=== PATIENT | male | born 1985 | race Asian ===

== ENCOUNTER → 2017-01-14 | Outpatient (CLI) | payer OTHER ==
[2016-07-20 12:30] VITALS: BP 132/72
[~2017-01-14] MED LIST: ASPI-630 PO; CLON0.5T PO; DRON10CA PO; EFAV1TAB PO; LEXAPRO20 MG PO; METH-37 PO; NAPR500T3 PO; RANI150T6 PO; TRAM50TA PO
[2017-01-14 10:35] LABS: BASO # 0.1 x10^3/uL (0.0-0.2); BASO % 1 % (0-3); EOS # 0.1 x10^3/uL (0.0-0.7); EOS % 2 % (0-3); HEMOGLOBIN 13.7 g/dL (13.0-17.5); LYMPH # 2.1 x10^3/uL (1.0-4.8); LYMPH % 37 % (24-48); MEAN CORPUSCULAR HEMOGLOBIN 35 pg (25-35); MEAN CORPUSCULAR HGB CONC 34 g/dL (31-37); MEAN CORPUSCULAR VOLUME 104 fL (79-100); MONO # 0.3 x10^3/uL (0.0-1.1); MONO % 6 % (0-9); NEUT % 53 % (31-73); PLATELET COUNT 222 x10^3/uL (140-400); RED BLOOD COUNT 3.86 x10^6/uL (4.30-5.70); RED CELL DISTRIBUTION WIDTH 13.4 % (11.5-14.5); WHITE BLOOD COUNT 5.6 x10^3/uL (4.0-11.0)
[2017-01-14 11:13] LABS: ALBUMIN 3.8 g/dL (3.4-5.0); ALBUMIN/GLOBULIN RATIO 1.1 (1.0-1.7); CREATININE 1.1 mg/dL (0.7-1.3); GFR 77.6; POTASSIUM 3.6 mmol/L (3.5-5.1); TOTAL BILIRUBIN 0.3 mg/dL (0.2-1.0); TOTAL PROTEIN 7.3 g/dL (6.4-8.2)
== END | disposition home or self-care (01) ==
LOC: LAB 09:35
PROVIDERS: ATTEND Internal Medicine Infectious Disease
DX: B20 Human immunodeficiency virus [HIV] disease (principal)
CPT/HCPCS: 80053; 85025

== ENCOUNTER → 2017-06-12 | Outpatient (CLI) | payer OTHER ==
[2016-07-20 12:30] VITALS: BP 132/72
[~2017-06-12] MED LIST changes: -NAPR500T3 PO; +NAPR500T4 PO
[2017-06-12 12:41] LABS: BASO % 0 % (0-3); EOS # 0.2 x10^3/uL (0.0-0.7); EOS % 3 % (0-3); HEMATOCRIT 41.2 % (39.0-53.0); HEMOGLOBIN 14.5 g/dL (13.0-17.5); LYMPH # 1.5 x10^3/uL (1.0-4.8); LYMPH % 24 % (24-48); MEAN CORPUSCULAR HEMOGLOBIN 38 pg (25-35); MEAN CORPUSCULAR HGB CONC 35 g/dL (31-37); MEAN CORPUSCULAR VOLUME 109 fL (79-100); MONO # 0.3 x10^3/uL (0.0-1.1); MONO % 5 % (0-9); NEUT # 4.1 x10^3uL (1.8-7.7); NEUT % 68 % (31-73); PLATELET COUNT 221 x10^3/uL (140-400); RED BLOOD COUNT 3.79 x10^6/uL (4.30-5.70); RED CELL DISTRIBUTION WIDTH 13.7 % (11.5-14.5); WHITE BLOOD COUNT 6.1 x10^3/uL (4.0-11.0)
[2017-06-12 12:49] LABS: ALBUMIN 4.2 g/dL (3.4-5.0); ALBUMIN/GLOBULIN RATIO 1.1 (1.0-1.7); CALCIUM 9.5 mg/dL (8.5-10.1); CREATININE 1.1 mg/dL (0.7-1.3); GFR 77.1; POTASSIUM 3.6 mmol/L (3.5-5.1); TOTAL PROTEIN 7.9 g/dL (6.4-8.2)
== END | disposition home or self-care (01) ==
LOC: LAB 11:30
PROVIDERS: ATTEND Internal Medicine Infectious Disease
DX: B20 Human immunodeficiency virus [HIV] disease (principal)
CPT/HCPCS: 36415; 80053; 85025; 86593; 87536

== ENCOUNTER 2017-06-29 22:01 | Emergency (ER) | payer OTHER ==
[~2017-06-29] VITALS: Ht 175.3 cm; Wt 93.9 kg
[~2017-06-29 22:01] MED LIST changes: +NAPR-514 PO; -NAPR500T4 PO
--- NOTE | 2017-06-29 22:04 | ED.ADGEN ---
Past History Past Medical History: HIV, Other Past Surgical History: Other Smoking: Non-smoker Alcohol Use: None Drug Use: None Adult General Chief Complaint Chief Complaint " ... I think I got the flu .." " My mom has flu B.." HPI HPI Patient is a 32 year old male who presents with above hx and complaints fever, chills, pharyngitis, rhinorrhea, myalgia, arthralgia , generalized chest discomfort and malaise. Patient denies any travel. Mother recently diagnosed with influenza B. Patient has known HIV and has been under some suppressive HIV therapy. Patient follows with infectious disease Dr. Ndiaye. Patient's primary of Dr. Bacon. Review of Systems Review of Systems Constitutional: Subjective history of fever or chills [] Eyes: Denies change in visual acuity, redness, or eye pain [] HENT: History of nasal congestion and moderate sore throat [] Respiratory: History of a nonproductive cough Cardiovascular: No additional information not addressed in HPI [] GI: Denies abdominal pain, nausea, vomiting, bloody stools or diarrhea [] : Denies dysuria or hematuria [] Musculoskeletal: Denies back pain or joint pain [] Integument: Denies rash or skin lesions [] Neurologic: Complaints of headache. Denies, focal weakness or sensory changes [ ] Endocrine: Denies polyuria or polydipsia [] All other systems were reviewed and found to be within normal limits, except as documented in this note. Family History Family History Mother has influenza B Current Medications Current Medications Current Medications Medications (Trade) Dose Ordered Sig/Jose Start Time Stop Time Status Last Admin Dose Admin Info (Do NOT chart on this entry -- for MONITORING) 1 each PRN DAILY PRN 06/30/17 00:30 06/30/17 04:25 DC Iohexol (Omnipaque 300 Mg/ml) 75 ml 1X ONCE 06/30/17 01:45 06/30/17 01:46 DC 06/30/17 01:56 75 ML Lactated Ringer's 1,000 ml @ 1,000 mls/hr 1X ONCE 06/30/17 03:00 06/30/17 03:59 DC 06/30/17 03:00 1,000 MLS/HR Magnesium Hydroxide (Milk Of Magnesia) 2,400 mg 1X ONCE 06/30/17 01:45 06/30/17 01:46 DC 06/30/17 01:45 2,400 MG Oseltamivir Phosphate (Tamiflu) 75 mg 1X ONCE 06/30/17 00:45 06/30/17 00:46 DC 06/30/17 00:51 75 MG Oxycodone/ Acetaminophen (Percocet 10/325) 1 tab 1X ONCE 06/29/17 23:45 06/30/17 00:18 DC 06/30/17 00:51 1 TAB Sodium Chloride 1,000 ml @ 1,000 mls/hr Q1H 06/29/17 23:45 06/30/17 00:44 DC 06/30/17 00:52 1,000 MLS/HR Allergies Allergies Allergies Coded Allergies Type Severity Reaction Last Updated Verified ceftriaxone Allergy Intermediate 09/04/13 Yes Physical Exam Physical Exam Constitutional: Moderately acute distress, non-toxic appearance. [] HENT: Normocephalic, atraumatic, bilateral external ears normal, oropharynx moist, injected pharynx, no oral exudates, nose rhinorrhea Eyes: PERRLA, EOMI, conjunctiva normal, no discharge. [] Neck: Normal range of motion, no tenderness, supple, no stridor. [] Cardiovascular: Tachycardia Heart rate regular rhythm, no murmur [] Lungs & Thorax: Bilateral breath sounds equal few scattered wheezes on auscultation [] Abdomen: Bowel sounds normal, soft, no tenderness, no masses, no pulsatile masses. [] Skin: Warm, dry, no erythema, no rash. [] Back: No tenderness, no CVA tenderness. [] Extremities: No tenderness, no cyanosis, no clubbing, ROM intact, no edema. [] Neurologic: Alert and oriented X 3, normal motor function, normal sensory function, no focal deficits noted. Design Inserter equal. DTRs +2 patella and brachial. Psychologic: Affect anxious, judgement normal, mood depressed Current Patient Data Vital Signs Vital Signs Date Time Temp Pulse Resp B/P (MAP) Pulse Ox O2 Delivery O2 Flow Rate FiO2 06/30/17 03:45 98.5 70 20 123/79 (94) 99 Room Air Lab Results Laboratory Tests Test 06/29/17 22:05 06/29/17 23:59 06/30/17 00:00 06/30/17 00:40 Influenza Type A (Rapid) Negative (NEGATIVE) Influenza Type B (Rapid) Positive (NEGATIVE) Group A Streptococcus Rapid Negative (NEGATIVE) White Blood Count 8.0 x10^3/uL (4.0-11.0) Red Blood Count 3.57 x10^6/uL (4.30-5.70) L Hemoglobin 13.7 g/dL (13.0-17.5) Hematocrit 39.0 % (39.0-53.0) Mean Corpuscular Volume 109 fL (79-100) H Mean Corpuscular Hemoglobin 38 pg (25-35) H Mean Corpuscular Hemoglobin Concent 35 g/dL (31-37) Red Cell Distribution Width 12.1 % (11.5-14.5) Platelet Count 207 x10^3/uL (140-400) Neutrophils (%) (Auto) 75 % (31-73) H Lymphocytes (%) (Auto) 20 % (24-48) L Monocytes (%) (Auto) 5 % (0-9) Eosinophils (%) (Auto) 0 % (0-3) Basophils (%) (Auto) 1 % (0-3) Neutrophils # (Auto) 6.0 x10^3uL (1.8-7.7) Lymphocytes # (Auto) 1.6 x10^3/uL (1.0-4.8) Monocytes # (Auto) 0.4 x10^3/uL (0.0-1.1) Eosinophils # (Auto) 0.0 x10^3/uL (0.0-0.7) Basophils # (Auto) 0.0 x10^3/uL (0.0-0.2) Erythrocyte Sedimentation Rate 7 (0-15) Prothrombin Time 10.5 SEC (9.4-11.4) Prothrombin Time INR 1.0 (0.9-1.1) PTT 24 SEC (23-33) D-Dimer (Lona) 0.19 mg/L (0.00-0.50) Sodium Level 136 mmol/L (136-145) Potassium Level 3.8 mmol/L (3.5-5.1) Chloride Level 101 mmol/L (98-107) Carbon Dioxide Level 27 mmol/L (21-32) Anion Gap 8 (6-14) Blood Urea Nitrogen 12 mg/dL (8-26) Creatinine 1.1 mg/dL (0.7-1.3) Estimated GFR (Cockcroft-Gault) 77.1 Glucose Level 120 mg/dL (70-99) H Calcium Level 8.8 mg/dL (8.5-10.1) Magnesium Level 1.7 mg/dL (1.8-2.4) L Total Bilirubin 0.3 mg/dL (0.2-1.0) Direct Bilirubin 0.1 mg/dL (0.0-0.2) Aspartate Amino Transferase (AST) 27 U/L (15-37) Alanine Aminotransferase (ALT) 37 U/L (16-63) Alkaline Phosphatase 67 U/L (46-116) Creatine Kinase 225 U/L (39-308) Creatine Kinase MB (Mass) 1.4 ng/mL (0.0-3.6) Creatine Kinase MB Relative Index 0.6 % (0-4) Troponin I Quantitative < 0.017 ng/mL (0-0.055) C-Reactive Protein 2.8 mg/L (0-3.3) JL-Npm-L-Type Natriuretic Peptide 56 pg/mL (0-124) Total Protein 7.5 g/dL (6.4-8.2) Albumin 4.1 g/dL (3.4-5.0) Amylase Level 54 U/L (25-115) Lipase 125 U/L (73-393) Urine Opiates Screen Pos (NEG) Urine Methadone Screen Neg (NEG) Urine Barbiturates Neg (NEG) Urine Phencyclidine Screen Neg (NEG) Urine Amphetamine/Methamphetamine Neg (NEG) Urine Benzodiazepines Screen Neg (NEG) Urine Cocaine Screen Neg (NEG) Urine Cannabinoids Screen Pos (NEG) Urine Ethyl Alcohol Neg (NEG) Urine Collection Type Void Urine Color Yellow Urine Clarity Clear Urine pH 6.0 Urine Specific [place] 1.020 Urine Protein Neg (NEG-TRACE) Urine Glucose (UA) Neg mg/dL (NEG) Urine Ketones (Stick) Neg mg/dL (NEG) Urine Blood Neg (NEG) Urine Nitrite Neg (NEG) Urine Bilirubin Neg (NEG) Urine Urobilinogen Dipstick 0.2 mg/dL (0.2 mg/dL) Urine Leukocyte Esterase Neg (NEG) Urine RBC 0 /HPF (0-2) Urine WBC 0 /HPF (0-4) Urine Squamous Epithelial Cells None /LPF Urine Bacteria 0 /HPF (0-FEW) EKG EKG My interpretation of EKG shows a sinus rhythm at 67. No findings of acute morphology[] Radiology/Procedures Radiology/Procedures I interpretation chest x-ray shows no large infiltrate or consolidation. Does have some linear atelectasis. My interpretation CT of head shows no shift, mass , edema, bleed, or fracture.[] Course & Med Decision Making Course & Med Decision Making Pertinent Labs and Imaging studies reviewed. (See chart for details) Patient reports marked improvement of symptoms at time of discharge. Patient declines spinal tap at this time. Patient exhibits UCAR capacity. Discussed presentation, testing and treatment plan with Dr. Ndiaye she recommended continue Tamiflu 75 mg twice a day. No change in his HIV regimen and to follow-up in clinic. Patient to push fruit juices and fluids. Patient take [id number] Tylenol and ibuprofen as needed for discomfort. Patient continue his HIV meds as previous directed. Patient take Tamiflu 75 mg twice day for 5 days. Patient follow-up with Dr. Bacon as well as Dr. Ndiaye. [] Final Impression Final Impression 1. Influenza B 2. Dehydration 3. History of HIV[] 4. Macrocytic hyperchromic indices 5. Hypo-magnesium Problems: Dragon Disclaimer Dragon Disclaimer This electronic medical record was generated, in whole or in part, using a voice recognition dictation system. SHAHAB MONTE MD Jun 29, 2017 22:04
[2017-06-29 23:36] LABS: INFLUENZA A PATIENT NEGATIVE (NEGATIVE); INFLUENZA B PATIENT POSITIVE (NEGATIVE)
[2017-06-29] MEDS ORDERED: IV NORMAL SALINE 1,000ML 1,000 ML IV SCH (23:45)
[2017-06-29] MEDS ORDERED: oxyCODONE/APAP 10/325 1 TAB TABLET PO ONE (23:45)
[2017-06-30] MEDS ORDERED: IOHEXOL 300 MG/ML 75 ML VIAL. IV ONE ×2 (00:15→01:45)
[2017-06-30 00:26] LABS: BASO % 1 % (0-3); EOS % 0 % (0-3); HEMOGLOBIN 13.7 g/dL (13.0-17.5); LYMPH # 1.6 x10^3/uL (1.0-4.8); LYMPH % 20 % (24-48); MEAN CORPUSCULAR HEMOGLOBIN 38 pg (25-35); MEAN CORPUSCULAR HGB CONC 35 g/dL (31-37); MEAN CORPUSCULAR VOLUME 109 fL (79-100); MONO # 0.4 x10^3/uL (0.0-1.1); MONO % 5 % (0-9); NEUT % 75 % (31-73); PLATELET COUNT 207 x10^3/uL (140-400); RED BLOOD COUNT 3.57 x10^6/uL (4.30-5.70); RED CELL DISTRIBUTION WIDTH 12.1 % (11.5-14.5)
[2017-06-30] MEDS ORDERED: CONTRAST GIVEN MC PRN (00:30)
[2017-06-30] MEDS ORDERED: OSELTAMIVIR 75 MG CAPSULE PO ONE (00:45)
[2017-06-30 01:01] LABS: ALBUMIN 4.1 g/dL (3.4-5.0); C REACTIVE PROTEIN 2.8 mg/L (0-3.3); CALCIUM 8.8 mg/dL (8.5-10.1); CREATININE 1.1 mg/dL (0.7-1.3); DIRECT BILIRUBIN 0.1 mg/dL (0.0-0.2); GFR 77.1; MAGNESIUM 1.7 mg/dL (1.8-2.4); POTASSIUM 3.8 mmol/L (3.5-5.1); TOTAL BILIRUBIN 0.3 mg/dL (0.2-1.0); TOTAL PROTEIN 7.5 g/dL (6.4-8.2)
[2017-06-30 01:14] LABS: AMPHETAMINE/METHAMPHETAMINE NEG (NEG); BARBITURATES NEG (NEG); BENZODIAZEPINES NEG (NEG); CANNABINOIDS POS (NEG); COCAINE NEG (NEG); METHADONE NEG (NEG); OPIATES POS (NEG); PHENCYCLIDINE NEG (NEG)
[2017-06-30 01:24] LABS: CLARITY,URINE CLEAR; COLOR,URINE YELLOW; GLUCOSE,URINE NEG (NEG)
[2017-06-30 01:25] LABS: BACTERIA,URINE 0 /HPF (0-FEW); BILIRUBIN,URINE NEG (NEG); NITRITE,URINE NEG (NEG); RBC,URINE 0 /HPF (0-2); UROBILINOGEN,URINE 0.2 mg/dL (0.2 mg/dL); WBC,URINE 0 /HPF (0-4)
--- NOTE | 2017-06-30 01:29 | RAD ---
INDICATION: Omni 300, 75 ml IV. Headache, fever, chills, HX HIV. Exam from 09/07/2011 sent for comparison COMPARISON: August 2011 TECHNIQUE: Axial CT images obtained through the chest. Intravenous contrast utilized. Angiogram 3D images processed per protocol. Noncontrast images also obtained. One or more of the following individualized dose reduction techniques were utilized for this examination: 1. Automated exposure control; 2. Adjustment of the mA and/or kV according to patient size; 3. Use of iterative reconstruction technique. FINDINGS: No evidence of pneumothorax. No definite focal airspace consolidation. Thoracic aorta is not aneurysmal. Scattered mildly prominent lymph nodes are seen within the mediastinum. No central pulmonary embolus. No dissection flap seen in aorta. Probable linear atelectasis at lingula. IMPRESSION: 1. No definite focal airspace consolidation. 2. No evidence of thoracic aortic aneurysm or dissection. Electronically signed by: Sean Urbina MD (06/30/2017 1:25 AM) [facility]
[2017-06-30] MEDS ORDERED: MAGNESIUM HYDROXIDE 2,400 MG/30 ML ORAL.SUSP. PO ONE (01:45)
[2017-06-30 02:09] LABS: SEDIMENTATION RATE 7 (0-15)
[2017-06-30] MEDS ORDERED: IV RINGERS SOLUTION,LACTATED 1,000 ML IV ONE (03:00)
--- NOTE | 2017-06-30 03:06 | RAD ---
INDICATION: Omni 300, 70 ml IV. Headache, hx HIV. Exam from 12/21/2013 sent for comparison COMPARISON: December 21, 2013 TECHNIQUE: Axial CT images obtained through the head with and without intravenous contrast.. One or more of the following individualized dose reduction techniques were utilized for this examination: 1. Automated exposure control; 2. Adjustment of the mA and/or kV according to patient size; 3. Use of iterative reconstruction technique. FINDINGS: No midline shift. Suprasellar cistern is not effaced. No definite acute intracranial hemorrhage. No definite enhancing intracranial mass within the limits of CT. IMPRESSION: No acute intracranial hemorrhage. No definite enhancing intracranial mass seen Electronically signed by: Sean Urbina MD (06/30/2017 3:02 AM) [facility]
[2017-06-30] MEDS ORDERED: HYDR-79 PO (03:25)
[2017-06-30] MEDS ORDERED: ONDA8TAB12 PO (03:25)
[2017-06-30] MEDS ORDERED: OSEL75CA PO (03:25)
[2017-06-30 03:45] VITALS: BP 123/79
--- NOTE | 2017-06-30 08:38 | RAD ---
AP PORTABLE CHEST Clinical Indication: fever, cough, Hx. of HIV. Comparison: Two-view chest 06/07/2015. Findings: The cardiomediastinal silhouette is normal. Lungs are clear. There is no pneumothorax. No pleural effusion is appreciated. There is no acute bone abnormality. IMPRESSION: No acute cardiopulmonary process.
--- NOTE | 2017-06-30 18:36 | EKG ---
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
== END 2017-06-30 03:45 | disposition home or self-care (01) ==
LOC: ER 22:01
DX: J10.1 Influenza due to other identified influenza virus with other respiratory manifestations (principal); E86.0 Dehydration; E83.42 Hypomagnesemia; D53.9 Nutritional anemia, unspecified; D50.9 Iron deficiency anemia, unspecified; Z21 Asymptomatic human immunodeficiency virus [HIV] infection status; Z88.1 Allergy status to other antibiotic agents
CPT/HCPCS: 36415; 70470; 71045; 71270; 80048; 80076; 80307; 81001; 82150; 82553; 83690; 83735; 83880; 84443; 84484; 85025; 85379; 85610; 85651; 85730; 86140; 87070; 87804; 87880; 93005; 96360; 96361; 99285; J7120; Q9967; G0479; J7030

== ENCOUNTER 2017-09-26 12:20 | Emergency (ER) | payer OTHER ==
[~2017-09-26] VITALS: Ht 175.3 cm; Wt 95.3 kg
[~2017-09-26 12:20] MED LIST changes: +HYDR-79 PO; +ONDA8TAB12 PO; +OSEL75CA PO; +RANI150T21 PO; -RANI150T6 PO
--- NOTE | 2017-09-26 12:43 | PHYS DOC ---
Past History Past Medical History: Anxiety, HIV Past Surgical History: No Surgical History Smoking: Non-smoker Alcohol Use: Occasionally Drug Use: Marijuana Adult General Chief Complaint Chief Complaint: MECHANICAL FALL HPI HPI Patient is a 32-year-old male who presents to the emergency department for evaluation. He states he jumped down 2 steps, and apparently landed with his left foot on the edge of the bottom step, and is complaining of severe pain at the arch and medial aspect of his left foot. He is unable to bear weight secondary to pain. He denies any numbness or weakness, or any other injuries. He did not fall, denies any headache, neck pain, any ankle or other leg pain. Palpation and attempted cannulation worsen his pain. There are no relieving factors to his symptoms. Review of Systems Review of Systems Constitutional: Denies fever or chills [] Musculoskeletal: Denies neck or back pain or joint pain, other than as noted in the history of present illness. [] Integument: Denies rash or skin lesions [] Neurologic: Denies headache, focal weakness or sensory changes [] Current Medications Current Medications Current Medications Medications (Trade) Dose Ordered Sig/Jose Start Time Stop Time Status Last Admin Dose Admin Oxycodone/ Acetaminophen (Percocet 5/325) 1 tab 1X ONCE 09/26/17 12:45 09/26/17 12:46 UNV Allergies Allergies Allergies Coded Allergies Type Severity Reaction Last Updated Verified ceftriaxone Allergy Intermediate 09/04/13 Yes Physical Exam Physical Exam PHYSICAL EXAM: HEENT: Atruamatic NECK: Supple, normal ROM, non-tender. CARDIAC: Regular Rate and Rhythm LUNGS: Clear Bilaterally EXTREMITIES: There is mild soft tissue swelling on the medial aspect of the midfoot, and tenderness to palpation in this area as well as on the dorsum of the left foot. There is a strong dorsalis pedis pulse, distal sensation and motor function are intact. The ankle is otherwise nontender, with no ligamentous laxity. The digits of the toes appear uninjured. The remainder of the left lower extremity and the remainder of the extremities are atraumatic, no tenderness to palpation in all range of motion. PSYCHIATRIC: The patient exhibits an anxious affect. Current Patient Data Vital Signs Vital Signs Date Time Temp Pulse Resp B/P (MAP) Pulse Ox O2 Delivery O2 Flow Rate FiO2 09/26/17 12:30 98.2 77 20 Room Air EKG EKG [] Radiology/Procedures Radiology/Procedures PROCEDURE: FOOT LEFT 3V History: Fall today, severe foot pain. Comparison: None. Findings: AP, lateral, and oblique views of the left foot. Homolateral Lisfranc fracture-dislocation is seen. All 5 metatarsal bases are shifted laterally. There is an additional fracture fragment seen adjacent to the medial aspect of the 3rd metatarsal base, favored to represent a displaced fracture of the lateral 2nd metatarsal base. There is also evidence of comminuted fracture of the lateral aspect of the cuboid. There is soft tissue swelling of the foot. Impression: 1. Acute, homolateral Lisfranc fracture-dislocation. 2. Additional fractures are seen involving the lateral base of the 2nd metatarsal as well as the lateral aspect of the cuboid. Course & Med Decision Making Course & Med Decision Making Pertinent Imaging studies reviewed. (See chart for details) [2:05 PM: After some delay was able to get a hold of Dr. Reynolds, who has reviewed the x-rays, and recommended transfer due to the complexity of the injury. transfer center has been contacted. 4:10 PM: After significant delay was finally able to get a hold of Dr. Littlejohn, foot and ankle surgeon at . He was able to review the images, and felt that the patient can be managed as an outpatient and he will see the patient tomorrow. He states that he would like to see the patient in his office at 8 AM and to have the patient nothing by mouth, for surgery planned for tomorrow. I discussed test results with the patient, nonweightbearing status, crutch use, as well as instructions per orthopedics at . ER procedure note: Splint impression: A short leg posterior splint was applied by ER staff and inspected by me postplacement. PMS intact.] Dragon Disclaimer Dragon Disclaimer This electronic medical record was generated, in whole or in part, using a voice recognition dictation system. Departure Departure: Impression: Primary Impression: Lisfranc fracture Disposition: 01 HOME, SELF-CARE Condition: STABLE Referrals: JAIRON FRANCE MD (PCP) Patient Instructions: Cast or Splint Care, Crutch Use, Foot Fracture, Lisfranc' s Fracture-Dislocation and Mid-Foot Sprain with [facility] Additional Instructions: Follow-up with Dr. Littlejohn, orthopedic surgeon at . Please come to the office at 8 AM tomorrow morning. The office is in the medical office building on the campus. They will direct you, from the main entrance, to his office. Do not eat or drink anything after midnight, in preparation for surgery tomorrow. The clinic number is [phone]. Dr. Littlejohn's nurse, Violetta, who may also assist you, her phone number is [phone]. Keep foot elevated, keep ice on her foot to prevent swelling. If he develops numbness, weakness, tingling, or any new, or concerning symptoms, return to medical attention immediately. Scripts Oxycodone Hcl/Acetaminophen (PERCOCET 5-325 MG TABLET) 1 Each Tablet 1-2 TAB PO Q4-6HRS, #30 TAB Prov: SANAZ BARRAZA MD 09/26/17 SANAZ BARRAZA MD September 26, 2017 12:42
[2017-09-26] MEDS ORDERED: oxyCODONE/APAP 5/325 1 TAB TABLET PO ONE (12:45)
--- NOTE | 2017-09-26 12:58 | RAD ---
History: Fall today, severe foot pain. Comparison: None. Findings: AP, lateral, and oblique views of the left foot. Homolateral Lisfranc fracture-dislocation is seen. All 5 metatarsal bases are shifted laterally. There is an additional fracture fragment seen adjacent to the medial aspect of the 3rd metatarsal base, favored to represent a displaced fracture of the lateral 2nd metatarsal base. There is also evidence of comminuted fracture of the lateral aspect of the cuboid. There is soft tissue swelling of the foot. Impression: 1. Acute, homolateral Lisfranc fracture-dislocation. 2. Additional fractures are seen involving the lateral base of the 2nd metatarsal as well as the lateral aspect of the cuboid. Electronically signed by: Paddy Zamora MD (09/26/2017 12:55 PM) [facility]
[2017-09-26] MEDS ORDERED: HYDROmorphone PF 1 MG/ML DISP.SYRIN IV ONE (14:15)
[2017-09-26] MEDS ORDERED: MORPHINE SULFATE 4 MG/ML DISP.SYRIN. IV ONE (14:15)
[2017-09-26] MEDS ORDERED: OXYC-323 PO (16:15)
[2017-09-26 16:45] VITALS: BP 142/92
== END 2017-09-26 16:50 | disposition home or self-care (01) ==
LOC: ER 12:20
DX: S92.812A Other fracture of left foot, initial encounter for closed fracture (principal); F41.9 Anxiety disorder, unspecified; F12.10 Cannabis abuse, uncomplicated; Z88.1 Allergy status to other antibiotic agents; W10.8XXA Fall (on) (from) other stairs and steps, initial encounter; Y93.39 Activity, other involving climbing, rappelling and jumping off; Y99.8 Other external cause status; Y92.89 Other specified places as the place of occurrence of the external cause
CPT/HCPCS: 29515; 73630; 96374; 99284; J2270

== ENCOUNTER 2018-10-08 13:44 | Emergency (ER) | payer OTHER ==
[~2018-10-08] VITALS: Ht 175.3 cm; Wt 98.7 kg
[~2018-10-08 13:44] MED LIST changes: -GENTAMICIN SULFATE 80 MG/2 ML VIAL. IM ONE; -HYDR-3165 PO
[2018-10-08] MEDS ORDERED: VANCOMYCIN 2 GM in IV NORMAL SALINE 500ML 500 ML IV ONE (15:00)
[2018-10-08] MEDS ORDERED: VANCOMYCIN PER PHARMACY MC ONE (15:00)
[2018-10-08] MEDS ORDERED: ONDANSETRON PF 4 MG/2 ML VIAL. IV ONE (15:00)
[2018-10-08] MEDS ORDERED: VANCOMYCIN 1 GM VIAL. ONE (15:21)
[2018-10-08] MEDS ORDERED: IV NORMAL SALINE 500ML 0 ML ONE (15:21)
[2018-10-08 15:24] LABS: BASO # 0.1 x10^3/uL (0.0-0.2); BASO % 1 % (0-3); EOS # 0.2 x10^3/uL (0.0-0.7); EOS % 3 % (0-3); HEMATOCRIT 44.4 % (39.0-53.0); HEMOGLOBIN 15.1 g/dL (13.0-17.5); LYMPH # 1.9 x10^3/uL (1.0-4.8); LYMPH % 25 % (24-48); MEAN CORPUSCULAR HEMOGLOBIN 36 pg (25-35); MEAN CORPUSCULAR HGB CONC 34 g/dL (31-37); MEAN CORPUSCULAR VOLUME 105 fL (79-100); MONO # 0.4 x10^3/uL (0.0-1.1); MONO % 5 % (0-9); NEUT # 5.2 x10^3uL (1.8-7.7); NEUT % 67 % (31-73); PLATELET COUNT 278 x10^3/uL (140-400); RED BLOOD COUNT 4.21 x10^6/uL (4.30-5.70); RED CELL DISTRIBUTION WIDTH 12.2 % (11.5-14.5); WHITE BLOOD COUNT 7.8 x10^3/uL (4.0-11.0)
--- NOTE | 2018-10-08 15:27 | PHYS DOC ---
Past History Past Medical History: Anxiety, HIV Past Surgical History: Other Smoking: Non-smoker Alcohol Use: Occasionally Drug Use: Marijuana Adult General Chief Complaint Chief Complaint: ABSCESS HPI HPI Patient is a 33 year old male who presents with complaint of infection to groin. The patient states that he had an abscess present to the left side of his groin and has been receiving treatment over the past 3 days. Patient initially was seen at the walk-in clinic at Dr. Davidson's office 2 days ago. Patient started on doxycycline. Was seen again today in order to have a dose of gentamicin given which she receive this morning. The patient however was sent to the emergency department after the provider there was concerned the patient could be starting to become septic. Patient denies any fevers. Patient states that the abscess has opened and has been draining through the skin which started today. States that the swelling and redness have decreased in size. Has been taking ibuprofen which has offered partial relief in pain symptoms. Is tolerating oral intake without difficulty. Patient does have history of HIV and has not had any recent lab work to check total white count or T cell counts. Review of Systems Review of Systems Constitutional: Fatigue, denies fever or chills [] Eyes: Denies change in visual acuity, redness, or eye pain [] HENT: Denies nasal congestion or sore throat [] Respiratory: Denies cough or shortness of breath [] Cardiovascular: Denies chest pain or edema[] GI: Denies abdominal pain, nausea, vomiting, bloody stools or diarrhea [] : Denies dysuria or hematuria [] Musculoskeletal: Denies back pain or joint pain [] Integument: Abscess to left groin[] Neurologic: Denies headache, focal weakness or sensory changes [] All other systems were reviewed and found to be within normal limits, except as documented in this note. Current Medications Current Medications Current Medications Medications (Trade) Dose Ordered Sig/Jose Start Time Stop Time Status Last Admin Dose Admin Fentanyl Citrate (Fentanyl 2ml Vial) 50 mcg PRN Q15MIN PRN 10/08/18 15:00 10/09/18 14:59 Ondansetron HCl (Zofran) 4 mg 1X ONCE 10/08/18 15:00 10/08/18 15:01 DC Sodium Chloride 0 ml @ As Directed STK-MED ONCE 10/08/18 15:21 10/08/18 15:22 DC Vancomycin HCl (Vanco Per Pharmacy) 1 each 1X ONCE 10/08/18 15:00 10/08/18 15:01 DC Vancomycin HCl (Vancomycin) 1 gm STK-MED ONCE 10/08/18 15:21 10/08/18 15:22 DC Vancomycin HCl 2 gm/Sodium Chloride 500 ml @ 250 mls/hr 1X ONCE 10/08/18 15:00 10/08/18 16:59 Allergies Allergies Allergies Coded Allergies Type Severity Reaction Last Updated Verified ceftriaxone Allergy Intermediate 10/08/18 Yes Physical Exam Physical Exam Constitutional: Alert, afebrile, appears in [id number] discomfort. [] HENT: Normocephalic, atraumatic, bilateral external ears normal, oropharynx moist, no oral exudates, nose normal. [] Eyes: PERRLA, EOMI, conjunctiva normal, no discharge. [] Neck: Normal range of motion, no tenderness, supple, no stridor. [] Cardiovascular:Heart rate regular rhythm, no murmur [] Lungs & Thorax: Bilateral breath sounds clear to auscultation [] Abdomen: Bowel sounds normal, soft, no tenderness, no masses, no pulsatile masses. : 1 cm wound present along left side of the mons pubis adjacent to the base of the penile shaft, no underlying induration or fluctuance, patient displays tenderness near the wound site, 3 cm of surrounding erythema present, no penile or testicular pain.[] Skin: Warm, dry, no erythema, no rash. [] Back: No tenderness, no CVA tenderness. [] Extremities: No tenderness, no cyanosis, no clubbing, ROM intact, no edema. [] Neurologic: Alert and oriented X 3, normal motor function, normal sensory function, no focal deficits noted. [] Current Patient Data Vital Signs Vital Signs Date Time Temp Pulse Resp B/P (MAP) Pulse Ox O2 Delivery O2 Flow Rate FiO2 10/08/18 13:59 97.8 81 20 Room Air Lab Results Laboratory Tests Test 10/08/18 15:06 10/08/18 15:15 White Blood Count 7.8 x10^3/uL Red Blood Count 4.21 x10^6/uL Hemoglobin 15.1 g/dL Hematocrit 44.4 % Mean Corpuscular Volume 105 fL Mean Corpuscular Hemoglobin 36 pg Mean Corpuscular Hemoglobin Concent 34 g/dL Red Cell Distribution Width 12.2 % Platelet Count 278 x10^3/uL Neutrophils (%) (Auto) 67 % Lymphocytes (%) (Auto) 25 % Monocytes (%) (Auto) 5 % Eosinophils (%) (Auto) 3 % Basophils (%) (Auto) 1 % Neutrophils # (Auto) 5.2 x10^3uL Lymphocytes # (Auto) 1.9 x10^3/uL Monocytes # (Auto) 0.4 x10^3/uL Eosinophils # (Auto) 0.2 x10^3/uL Basophils # (Auto) 0.1 x10^3/uL Sodium Level 140 mmol/L Potassium Level 4.5 mmol/L Chloride Level 104 mmol/L Carbon Dioxide Level 27 mmol/L Anion Gap 9 Blood Urea Nitrogen 16 mg/dL Creatinine 1.1 mg/dL Estimated GFR (Cockcroft-Gault) 76.6 BUN/Creatinine Ratio 15 Glucose Level 85 mg/dL Calcium Level 9.6 mg/dL Total Bilirubin 0.5 mg/dL Aspartate Amino Transf (AST/SGOT) 17 U/L Alanine Aminotransferase (ALT/SGPT) 35 U/L Alkaline Phosphatase 86 U/L Total Protein 7.9 g/dL Albumin 3.8 g/dL Albumin/Globulin Ratio 0.9 Current Medications Medications (Trade) Dose Ordered Sig/Jose Route PRN Reason Start Time Stop Time Status Last Admin Dose Admin Vancomycin HCl (Vanco Per Pharmacy) 1 each 1X ONCE 10/08/18 15:00 10/08/18 15:01 DC Fentanyl Citrate (Fentanyl 2ml Vial) 50 mcg PRN Q15MIN PRN IV PAIN GREATER THAN 3/10 10/08/18 15:00 10/09/18 14:59 10/08/18 15:38 Ondansetron HCl (Zofran) 4 mg 1X ONCE IV 10/08/18 15:00 10/08/18 15:01 DC 10/08/18 15:36 Vancomycin HCl 2 gm/Sodium Chloride 500 ml @ 250 mls/hr 1X ONCE IV 10/08/18 15:00 10/08/18 16:59 DC 10/08/18 15:31 Sodium Chloride 0 ml @ As Directed STK-MED ONCE .ROUTE 10/08/18 15:21 10/08/18 15:22 DC Vancomycin HCl (Vancomycin) 1 gm STK-MED ONCE .ROUTE 10/08/18 15:21 10/08/18 15:22 DC EKG EKG Not performed[] Radiology/Procedures Radiology/Procedures Not performed[] Course & Med Decision Making Course & Med Decision Making Pertinent Labs and Imaging studies reviewed. (See chart for details) Patient was given a dose of IV vancomycin in the emergency department. Lab work and vital signs at this time do not support sepsis diagnosis. Patient states that his symptoms are actually improving at this time compared to the past 2 days. Patient currently on doxycycline which is considered an appropriate outpatient antibiotic for continued treatment. Patient is agreeable with continued outpatient treatment. Patient was given prescription for [place] to help with pain control. Advised follow-up with primary doctor in the next 2-3 days for reevaluation and recommended return to the emergency department for any worsening symptoms. Patient was understanding and in agreement with treatment plan.[] Dragon Disclaimer Dragon Disclaimer This electronic medical record was generated, in whole or in part, using a voice recognition dictation system. Departure Departure: Impression: Primary Impression: Abscess of groin, left Disposition: 01 HOME, SELF-CARE Condition: STABLE Referrals: JAIRON FRANCE MD (PCP) [facility] Patient Instructions: Abscess, Care After Additional Instructions: Follow-up with your doctor in the next 2-3 days for reevaluation. Call the [facility] to set up an appointment in the next 3-4 days. Return to the emergency department for any worsening symptoms. Scripts Hydrocodone Bit/Acetaminophen (NORCO 5-325 TABLET) 1 Each Tablet 1 TAB PO Q4-6HRS PRN for PAIN, #20 TAB Prov: ASAEL CASE MD 10/08/18 ASAEL CASE MD October 08, 2018 15:27
[2018-10-08 15:47] LABS: ALBUMIN 3.8 g/dL (3.4-5.0); ALBUMIN/GLOBULIN RATIO 0.9 (1.0-1.7); CALCIUM 9.6 mg/dL (8.5-10.1); CREATININE 1.1 mg/dL (0.7-1.3); GFR 76.6; POTASSIUM 4.5 mmol/L (3.5-5.1); TOTAL BILIRUBIN 0.5 mg/dL (0.2-1.0); TOTAL PROTEIN 7.9 g/dL (6.4-8.2)
[2018-10-08] MEDS ORDERED: HYDR-3165 PO (17:40)
[2018-10-08 17:55] VITALS: BP 162/88
== END 2018-10-08 17:57 | disposition home or self-care (01) ==
LOC: ER 13:44
DX: L02.214 Cutaneous abscess of groin (principal); F41.9 Anxiety disorder, unspecified; Z88.8 Allergy status to other drugs, medicaments and biological substances
CPT/HCPCS: 36415; 80053; 85025; 87040; 87071; 87075; 96365; 96366; 96375; 99285; J2405; J3010; J3370; J7040

== ENCOUNTER → 2018-10-08 | Outpatient (CLI) | payer OTHER ==
[~2018-10-08] MED LIST changes: +GENTAMICIN SULFATE 80 MG/2 ML VIAL. IM ONE; +HYDR-1179 PO; +HYDR-3165 PO; -HYDR-79 PO; +OXYC1TAB15 PO
[2018-10-08 10:23] VITALS: BP 129/84
--- NOTE | 2018-10-08 10:25 | NUR ---
Patient ambulated to room 111, vitals obtained and within normal limits ABT injection given in left and right buttocks, tolerated well Ambulated off unit independently.
== END | disposition home or self-care (01) ==
LOC: OPINF 10:01
PROVIDERS: ATTEND Family Medicine
DX: L02.214 Cutaneous abscess of groin (principal); E78.5 Hyperlipidemia, unspecified; B20 Human immunodeficiency virus [HIV] disease; Z86.2 Personal history of diseases of the blood and blood-forming organs and certain disorders involving the immune mechanism
CPT/HCPCS: 96372; J1580